=== PATIENT | male | born 1975 | race Two or more races ===

== ENCOUNTER 2021-11-10 16:55 | Emergency (ER) | payer MEDICAID, OTHER ==
[2021-11-10] MEDS: Nitroglycerin 0.4 MG Tab.SL SL PRN ×2 (17:05→17:20)
[2021-11-10] MEDS ORDERED: Morphine 2 MG/ML SYRINGE IVPUSH ONE ×2 (17:14→18:20)
[2021-11-10] MEDS ORDERED: Aspirin 81 MG Tab.Chew PO ONE (17:14)
[2021-11-10] MEDS ORDERED: Nitroglycerin 0.4 MG Tab.SL SL ONE (17:18)
[2021-11-10] MEDS ORDERED: Ondansetron 4 MG/2 ML SDV ONE (17:27)
[2021-11-10 17:39] LABS: ANION GAP 15.8 mmol/L (5-15); CHLORIDE,CL 100 mmol/L (98-107); SODIUM,NA 138 mmol/L (136-145)
[2021-11-10] MEDS ORDERED: Ticagrelor 90 MG Tab PO ONE (18:01)
[2021-11-10] MEDS ORDERED: Tenecteplase 50 MG Kit IV SCH (18:15)
[2021-11-10] MEDS ORDERED: Morphine 2 MG/ML SYRINGE ONE (18:22)
[2021-11-10] MEDS ORDERED: Ondansetron 4 MG/2 ML SDV IVPUSH ONE (18:43)
[2021-11-10] MEDS ORDERED: Heparin Sodium 5,000 Units/ML Vial IVPUSH ONE (19:13)
[2021-11-10] MEDS ORDERED: Heparin Sodium/D5W 250 ML IV SCH (19:15)
[2021-11-10 19:21] LABS: BARBITURATE SCREEN,URINE NEGATIVE (NEGATIVE); BENZODIAZEPINES SCREEN,URINE NEGATIVE (NEGATIVE); TCA SCREEN,URINE NEGATIVE (NEGATIVE); THC SCREEN,URINE 50 NG/ML NEGATIVE (NEGATIVE)
== END 2021-11-10 18:40 ==
LOC: KA.ED 16:55
DX: I21.3 ST elevation (STEMI) myocardial infarction of unspecified site (principal); F10.10 Alcohol abuse, uncomplicated; F14.10 Cocaine abuse, uncomplicated; Z79.899 Other long term (current) drug therapy
CPT/HCPCS: 36415; 51702; 71045; 80053; 80305; 80307; 84484; 85025; 85730; 93005; 96365; 96375; 96376; 99285; A9270; J1644; J2270; J2405; J3101

== ENCOUNTER 2021-11-25 05:50 | Emergency (ER) | payer MEDICAID, OTHER ==
[2021-11-25 06:51] LABS: ANION GAP 12.3 mmol/L (5-15); CHLORIDE,CL 100 mmol/L (98-107); SODIUM,NA 135 mmol/L (136-145)
[2021-11-25] MEDS: Sodium Chloride 0.9% 50 ML IV ONE (08:36)
[2021-11-25] MEDS: Iopamidol 755 Mg/ML 75 ML Bottle IVPUSH ONE (08:37)
== END 2021-11-25 09:30 | disposition home or self-care (01) ==
LOC: KA.ED 05:50
DX: R06.02 Shortness of breath (principal); G47.30 Sleep apnea, unspecified; R79.89 Other specified abnormal findings of blood chemistry; I25.119 Atherosclerotic heart disease of native coronary artery with unspecified angina pectoris; I25.2 Old myocardial infarction; Z95.5 Presence of coronary angioplasty implant and graft; Z79.899 Other long term (current) drug therapy; Z79.02 Long term (current) use of antithrombotics/antiplatelets; Z20.822 Contact with and (suspected) exposure to COVID-19
CPT/HCPCS: 36415; 71046; 71275; 80053; 83880; 84484; 85025; 85379; 93005; 93010; 99284; 99285-25; Q9967; U0002

== ENCOUNTER 2021-11-29 01:25 | Inpatient (IN) | payer MEDICAID, OTHER ==
[2021-11-29 02:19] LABS: ANION GAP 14.2 mmol/L (5-15); CHLORIDE,CL 102 mmol/L (98-107); SODIUM,NA 137 mmol/L (136-145)
[2021-11-29] MEDS ORDERED: Levofloxacin/Dextrose 5%-Water 750 MG in Premix Bag 1 BAG IV ONE (04:01)
[2021-11-29] MEDS ORDERED: Sodium Chloride 0.9% 100 ML ONE (04:11)
[2021-11-29] MEDS ORDERED: Lidocaine 2% 100 MG/5 ML Syringe IVPUSH PRN (05:02)
[2021-11-29] MEDS ORDERED: Nitroglycerin 0.4 MG Tab.SL SL PRN ×2 (05:02→08:09)
[2021-11-29] MEDS ORDERED: EPINEPHrine 1:10,000 1 MG/10 ML Syringe IVPUSH PRN (05:02)
[2021-11-29] MEDS ORDERED: Atropine 0.1 MG/ML 10 ML Syringe IVPUSH PRN (05:02)
[2021-11-29] MEDS ORDERED: Ibuprofen 400 MG Tab PO PRN (05:04)
[2021-11-29] MEDS: Ticagrelor 90 MG Tab PO SCH ×2 (08:57→20:08)
[2021-11-29] MEDS: Pantoprazole 40 MG Tab.CR PO SCH ×2 (08:57→20:08)
[2021-11-29] MEDS: Aspirin 81 MG Tab.EC PO SCH (08:57)
[2021-11-29] MEDS: atorvaSTATin 40 MG Tab PO SCH (08:57)
[2021-11-29] MEDS: Metoprolol Succinate 25 MG Tab.ER PO SCH (08:59)
[2021-11-29] MEDS: Nicotine 21 MG/24 Hr Patch TRDERM SCH (09:00)
[2021-11-29] MEDS ORDERED: Furosemide 40 MG/4 ML VIAL IVPUSH ONE ×2 (09:20→16:16)
[2021-11-29] MEDS: Lisinopril 5 MG Tab PO SCH (09:44)
[2021-11-29 13:19] LABS: BARBITURATE SCREEN,URINE NEGATIVE (NEGATIVE); BENZODIAZEPINES SCREEN,URINE NEGATIVE (NEGATIVE); TCA SCREEN,URINE NEGATIVE (NEGATIVE); THC SCREEN,URINE 50 NG/ML NEGATIVE (NEGATIVE)
[2021-11-30] MEDS: Levofloxacin/Dextrose 5%-Water 750 MG in Premix Bag 1 BAG IV SCH (05:02)
[2021-11-30] MEDS: Nicotine 21 MG/24 Hr Patch TRDERM SCH (09:13)
[2021-11-30] MEDS: Aspirin 81 MG Tab.EC PO SCH (09:13)
[2021-11-30] MEDS: Ticagrelor 90 MG Tab PO SCH ×2 (09:13→21:11)
[2021-11-30] MEDS: atorvaSTATin 40 MG Tab PO SCH (09:13)
[2021-11-30] MEDS: Metoprolol Succinate 25 MG Tab.ER PO SCH (09:14)
[2021-11-30] MEDS: Lisinopril 5 MG Tab PO SCH (09:14)
[2021-11-30] MEDS: Pantoprazole 40 MG Tab.CR PO SCH ×2 (09:14→21:11)
[2021-12-01] MEDS: Acetaminophen 325 MG Tab PO PRN (04:45)
[2021-12-01] MEDS: Levofloxacin/Dextrose 5%-Water 750 MG in Premix Bag 1 BAG IV SCH ×2 (04:46→05:01)
[2021-12-01] MEDS ORDERED: Menthol 7.6 MG Sugar Free Lozenge PO PRN (04:55)
[2021-12-01] MEDS: Nicotine 21 MG/24 Hr Patch TRDERM SCH (09:15)
[2021-12-01] MEDS: Ticagrelor 90 MG Tab PO SCH ×2 (09:15→20:42)
[2021-12-01] MEDS: Metoprolol Succinate 25 MG Tab.ER PO SCH (09:15)
[2021-12-01] MEDS: Pantoprazole 40 MG Tab.CR PO SCH ×2 (09:15→20:42)
[2021-12-01] MEDS: atorvaSTATin 40 MG Tab PO SCH (09:15)
[2021-12-01] MEDS: Lisinopril 5 MG Tab PO SCH (09:16)
[2021-12-01] MEDS: Aspirin 81 MG Tab.EC PO SCH (09:16)
[2021-12-01] MEDS ORDERED: Furosemide 40 MG/4 ML VIAL IVPUSH ONE (11:44)
[2021-12-01] MEDS ORDERED: Furosemide 40 MG/4 ML VIAL IVPUSH SCH (16:00)
[2021-12-01] MEDS: ALPRAZolam 0.25 MG Tab PO PRN (20:42)
[2021-12-01] MEDS ORDERED: Metoprolol Tartrate 5 MG/5 ML SDV IVPUSH ONE (22:29)
[2021-12-01] MEDS ORDERED: Digoxin 500 MCG/2 ML Amp IVPUSH ONE (22:56)
[2021-12-01] MEDS ORDERED: Sodium Chloride 0.9% 250 ML IV SCH (23:00)
[2021-12-01] MEDS ORDERED: Enoxaparin 100 MG/1 ML Syringe SUBCUT ONE (23:09)
[2021-12-01 23:32] LABS: ANION GAP 14.5 mmol/L (5-15); CHLORIDE,CL 100 mmol/L (98-107); SODIUM,NA 138 mmol/L (136-145)
[2021-12-01] MEDS ORDERED: Potassium Chloride 10 MEQ Tab.ER PO ONE (23:37)
[2021-12-02] MEDS ORDERED: Metoprolol Tartrate 5 MG/5 ML SDV IVPUSH ONE (00:39)
[2021-12-02] MEDS ORDERED: Sodium Chloride 0.9% 500 ML IV SCH (00:45)
[2021-12-02] MEDS ORDERED: Metoprolol Tartrate 25 MG Tab PO ONE (03:48)
[2021-12-02] MEDS ORDERED: Digoxin 500 MCG/2 ML Amp IVPUSH ONE (06:00)
[2021-12-02] MEDS: Levofloxacin 500 MG Tab PO SCH (08:04)
[2021-12-02] MEDS: Nicotine 21 MG/24 Hr Patch TRDERM SCH (08:06)
[2021-12-02] MEDS: Ticagrelor 90 MG Tab PO SCH ×2 (08:07→20:52)
[2021-12-02] MEDS: Pantoprazole 40 MG Tab.CR PO SCH ×2 (08:07→20:52)
[2021-12-02] MEDS: Aspirin 81 MG Tab.EC PO SCH (08:08)
[2021-12-02] MEDS: atorvaSTATin 40 MG Tab PO SCH (08:17)
[2021-12-02] MEDS: Lisinopril 5 MG Tab PO SCH (09:46)
[2021-12-02] MEDS: Metoprolol Succinate 25 MG Tab.ER PO SCH (09:55)
[2021-12-02] MEDS: Isosorbide Mononitrate 30 MG Tab.ER PO SCH (11:09)
[2021-12-02] MEDS: Metoprolol Tartrate 25 MG Tab PO SCH (20:52)
[2021-12-02] MEDS: Apixaban 5 MG Tab PO SCH (20:52)
[2021-12-02] MEDS: ALPRAZolam 0.25 MG Tab PO PRN (20:52)
[2021-12-03] MEDS: Acetaminophen 325 MG Tab PO PRN (00:22)
[2021-12-03] MEDS: Levofloxacin 500 MG Tab PO SCH (08:07)
[2021-12-03] MEDS: Ticagrelor 90 MG Tab PO SCH (08:07)
[2021-12-03] MEDS: Nicotine 21 MG/24 Hr Patch TRDERM SCH (08:07)
[2021-12-03] MEDS: Pantoprazole 40 MG Tab.CR PO SCH (08:07)
[2021-12-03] MEDS: atorvaSTATin 40 MG Tab PO SCH (08:08)
[2021-12-03] MEDS: Aspirin 81 MG Tab.EC PO SCH (08:08)
[2021-12-03] MEDS: Metoprolol Tartrate 25 MG Tab PO SCH (08:08)
[2021-12-03] MEDS: Isosorbide Mononitrate 30 MG Tab.ER PO SCH (08:08)
[2021-12-03] MEDS: Apixaban 5 MG Tab PO SCH (08:09)
[2021-12-03] MEDS ORDERED: Furosemide 40 MG/4 ML VIAL IVPUSH ONE (08:53)
[2021-12-03] MEDS ORDERED: Digoxin 125 MCG Tab PO SCH (09:00)
[2021-12-03] MEDS ORDERED: Lactated Ringers 1,000 ML IV ONE (11:35)
[2021-12-03] MEDS ORDERED: Sodium Chloride 0.9% 1,000 ML IV ONE (11:37)
[2021-12-03 12:11] LABS: ANION GAP 12.7 mmol/L (5-15); CHLORIDE,CL 100 mmol/L (98-107); SODIUM,NA 138 mmol/L (136-145)
[2021-12-03] MEDS ORDERED: Sodium Chloride 0.9% 1,000 ML IV SCH (12:30)
== END 2021-12-03 13:05 | DRG 193 ==
LOC: KA.ED 01:25 → KA.MS 03:36 → UNDOADMIN 04:10 → KA.MS 04:10
PROVIDERS: ADMIT Internal Medicine; ATTEND Nurse Practitioner Family
DX: J18.9 Pneumonia, unspecified organism (principal); I21.3 ST elevation (STEMI) myocardial infarction of unspecified site; I50.22 Chronic systolic (congestive) heart failure; I48.0 Paroxysmal atrial fibrillation; F11.90 Opioid use, unspecified, uncomplicated; I25.10 Atherosclerotic heart disease of native coronary artery without angina pectoris; Y95 Nosocomial condition; Z79.82 Long term (current) use of aspirin; I25.2 Old myocardial infarction
CPT/HCPCS: 36415; 71045; 80048; 80053; 80202; 80305-QW; 82550; 83880; 84484; 85025; 85379; 87070; 87205; 93005; 99223; 99232; 99285-25; A9270-GY; J1160; J1650; J1940; J1956; J3370; J3490; J7030; J7040; J7050; J7120; U0002

== ENCOUNTER 2021-12-10 19:46 | Emergency (ER) | payer MEDICAID, OTHER ==
[2021-12-10 20:14] LABS: ANION GAP 13.5 mmol/L (5-15); CHLORIDE,CL 98 mmol/L (98-115); SODIUM,NA 136 mmol/L (136-145)
[2021-12-10] MEDS ORDERED: Sodium Chloride 0.9% 10 ML Syringe FLUSH PRN (20:18)
== END 2021-12-10 21:04 | disposition home or self-care (01) ==
LOC: KA.ED 19:46
DX: R42 Dizziness and giddiness (principal); R05.9 Cough, unspecified; M79.89 Other specified soft tissue disorders; M25.512 Pain in left shoulder; I25.119 Atherosclerotic heart disease of native coronary artery with unspecified angina pectoris; I25.2 Old myocardial infarction; Z79.01 Long term (current) use of anticoagulants; Z79.899 Other long term (current) drug therapy
CPT/HCPCS: 36415; 71046; 80053; 80162; 83880; 84484; 85025; 93005; 93010; 99284; 99285-25

== ENCOUNTER 2021-12-29 23:15 | Inpatient (IN) | payer MEDICAID, OTHER ==
[2021-12-30 00:33] LABS: CHLORIDE,CL 102 mmol/L (98-107); SODIUM,NA 137 mmol/L (136-145)
[2021-12-30] MEDS ORDERED: Furosemide 40 MG/4 ML VIAL IVPUSH ONE ×2 (00:33→14:00)
[2021-12-30 00:51] LABS: ANION GAP 14.5 mmol/L (5-15)
[2021-12-30] MEDS ORDERED: cefTRIAXone 2 GM Vial IVPUSH ONE (01:37)
[2021-12-30] MEDS ORDERED: Water For Injection, Sterile 20 ML ONE (01:55)
[2021-12-30] MEDS: Nicotine 21 MG/24 Hr Patch TRDERM SCH (09:14)
[2021-12-30] MEDS: Apixaban 5 MG Tab PO SCH ×2 (09:15→20:47)
[2021-12-30] MEDS ORDERED: Potassium Bicarbonate 25 MEQ Tab.EFF PO ONE ×2 (09:15→17:00)
[2021-12-30] MEDS: Carvedilol 6.25 MG Tab PO SCH ×2 (09:15→17:24)
[2021-12-30] MEDS: Pantoprazole 40 MG Tab.CR PO SCH (09:15)
[2021-12-30] MEDS: Escitalopram 10 MG Tab PO SCH (09:16)
[2021-12-30] MEDS: Amiodarone 200 MG Tab PO SCH ×2 (09:16→20:49)
[2021-12-30] MEDS: Lisinopril 5 MG Tab PO SCH (09:19)
[2021-12-30] MEDS: Spironolactone 25 MG Tab PO SCH (09:20)
[2021-12-30] MEDS: Acetaminophen 325 MG Tab PO PRN ×3 (09:27→22:01)
[2021-12-30] MEDS ORDERED: Ondansetron 4 MG/2 ML SDV IVPUSH ONE (13:17)
[2021-12-30] MEDS: guaiFENesin/Dextromethorphan 100-10 MG/5 ML Soln 5 ML Cup PO PRN ×2 (15:49→20:46)
[2021-12-30] MEDS ORDERED: Metolazone 2.5 MG Tab PO ONE (17:19)
[2021-12-30] MEDS: ClonazePAM 0.5 MG Tab PO SCH (20:47)
[2021-12-30] MEDS: atorvaSTATin 40 MG Tab PO SCH (20:48)
[2021-12-30] MEDS: cefTRIAXone 2 GM Vial IVPUSH SCH (21:00)
[2021-12-31] MEDS: guaiFENesin/Dextromethorphan 100-10 MG/5 ML Soln 5 ML Cup PO PRN ×2 (02:08→21:48)
[2021-12-31] MEDS: Acetaminophen 325 MG Tab PO PRN ×3 (06:29→23:34)
[2021-12-31] MEDS: Pantoprazole 40 MG Tab.CR PO SCH (06:30)
[2021-12-31 07:53] LABS: ANION GAP 13.1 mmol/L (5-15); CHLORIDE,CL 98 mmol/L (98-107); SODIUM,NA 138 mmol/L (136-145)
[2021-12-31] MEDS: Amiodarone 200 MG Tab PO SCH ×2 (08:06→20:51)
[2021-12-31] MEDS: Escitalopram 10 MG Tab PO SCH (08:06)
[2021-12-31] MEDS: Lisinopril 5 MG Tab PO SCH (08:06)
[2021-12-31] MEDS: Spironolactone 25 MG Tab PO SCH (08:06)
[2021-12-31] MEDS: Carvedilol 6.25 MG Tab PO SCH ×2 (08:07→17:58)
[2021-12-31] MEDS: Apixaban 5 MG Tab PO SCH ×2 (08:07→20:51)
[2021-12-31] MEDS: Remove Patch - NICOTINE TRDERM SCH (08:08)
[2021-12-31] MEDS: Nicotine 21 MG/24 Hr Patch TRDERM SCH (08:09)
[2021-12-31] MEDS: Furosemide 40 MG Tab PO SCH (09:59)
[2021-12-31] MEDS: atorvaSTATin 40 MG Tab PO SCH (20:50)
[2021-12-31] MEDS: ClonazePAM 0.5 MG Tab PO SCH (20:51)
[2021-12-31] MEDS: cefTRIAXone 2 GM Vial IVPUSH SCH (21:08)
[2022-01-01] MEDS: Pantoprazole 40 MG Tab.CR PO SCH ×2 (06:18→06:29)
[2022-01-01] MEDS: guaiFENesin/Dextromethorphan 100-10 MG/5 ML Soln 5 ML Cup PO PRN ×2 (06:31→21:03)
[2022-01-01 07:37] LABS: ANION GAP 14.2 mmol/L (5-15); CHLORIDE,CL 97 mmol/L (98-107); SODIUM,NA 137 mmol/L (136-145)
[2022-01-01] MEDS: Lisinopril 5 MG Tab PO SCH (08:23)
[2022-01-01] MEDS: Nicotine 21 MG/24 Hr Patch TRDERM SCH (08:23)
[2022-01-01] MEDS: Remove Patch - NICOTINE TRDERM SCH (08:23)
[2022-01-01] MEDS: Escitalopram 10 MG Tab PO SCH (08:24)
[2022-01-01] MEDS: Apixaban 5 MG Tab PO SCH ×2 (08:24→21:03)
[2022-01-01] MEDS: Spironolactone 25 MG Tab PO SCH (08:24)
[2022-01-01] MEDS: Furosemide 40 MG Tab PO SCH (08:24)
[2022-01-01] MEDS: Carvedilol 6.25 MG Tab PO SCH ×2 (08:24→17:52)
[2022-01-01] MEDS: Amiodarone 200 MG Tab PO SCH ×2 (08:24→21:03)
[2022-01-01] MEDS ORDERED: Metolazone 2.5 MG Tab PO ONE (15:20)
[2022-01-01] MEDS ORDERED: Potassium Bicarbonate 25 MEQ Tab.EFF PO ONE (18:00)
[2022-01-01] MEDS: Acetaminophen 325 MG Tab PO PRN (18:28)
[2022-01-01] MEDS: atorvaSTATin 40 MG Tab PO SCH (21:03)
[2022-01-01] MEDS: cefTRIAXone 2 GM Vial IVPUSH SCH (21:03)
[2022-01-01] MEDS: ClonazePAM 0.5 MG Tab PO SCH (21:03)
[2022-01-02] MEDS: guaiFENesin/Dextromethorphan 100-10 MG/5 ML Soln 5 ML Cup PO PRN ×2 (02:25→08:37)
[2022-01-02] MEDS: Pantoprazole 40 MG Tab.CR PO SCH ×2 (06:04→06:32)
[2022-01-02 07:48] LABS: ANION GAP 12.3 mmol/L (5-15); CHLORIDE,CL 95 mmol/L (98-107); SODIUM,NA 136 mmol/L (136-145)
[2022-01-02] MEDS: Lisinopril 5 MG Tab PO SCH (08:27)
[2022-01-02] MEDS: Escitalopram 10 MG Tab PO SCH (08:31)
[2022-01-02] MEDS: Spironolactone 25 MG Tab PO SCH (08:31)
[2022-01-02] MEDS: Amiodarone 200 MG Tab PO SCH (08:31)
[2022-01-02] MEDS: Furosemide 40 MG Tab PO SCH (08:31)
[2022-01-02] MEDS: Apixaban 5 MG Tab PO SCH (08:31)
[2022-01-02] MEDS: Carvedilol 6.25 MG Tab PO SCH (08:31)
[2022-01-02] MEDS: Remove Patch - NICOTINE TRDERM SCH (08:32)
[2022-01-02] MEDS: Nicotine 21 MG/24 Hr Patch TRDERM SCH (08:32)
[2022-01-02] MEDS: Acetaminophen 325 MG Tab PO PRN (08:37)
[2022-01-02] MEDS ORDERED: Potassium Bicarbonate 25 MEQ Tab.EFF PO ONE (18:00)
== END 2022-01-02 13:20 | disposition home or self-care (01) | DRG 193 ==
LOC: KA.ED 23:15 → KA.MS 12-30 01:41 → UNDOADMIN 12-30 02:15 → KA.MS 12-30 02:15
PROVIDERS: ADMIT Nurse Practitioner Family; ATTEND Internal Medicine
DX: J18.9 Pneumonia, unspecified organism (principal); I50.33 Acute on chronic diastolic (congestive) heart failure; I48.91 Unspecified atrial fibrillation; I25.2 Old myocardial infarction; F32.A Depression, unspecified; K21.9 Gastro-esophageal reflux disease without esophagitis; Z20.822 Contact with and (suspected) exposure to COVID-19; I25.10 Atherosclerotic heart disease of native coronary artery without angina pectoris; E87.6 Hypokalemia; Z95.5 Presence of coronary angioplasty implant and graft; Z79.899 Other long term (current) drug therapy
CPT/HCPCS: 36415; 71045; 80053; 83605; 83880; 84484; 85025; 87070; 87205; 93005; 96374; 96375; 99285-25; A9270-GY; J0696; J1940; U0002

== ENCOUNTER 2022-01-27 16:08 | Inpatient (IN) | payer MEDICAID, OTHER ==
[2022-01-27 17:12] LABS: RESPIRATORY SYNCYTIAL VIR NAA NEGATIVE (NEGATIVE)
[2022-01-27 17:13] LABS: CORONAVIRUS COVID-19 NAA NEGATIVE (NEGATIVE)
[2022-01-27 17:53] LABS: ANION GAP 11.9 mmol/L (5-15); CHLORIDE,CL 100 mmol/L (98-107); SODIUM,NA 137 mmol/L (136-145)
[2022-01-27 17:54] LABS: ESTIMATED GFR 60 mL/min
[2022-01-27] MEDS ORDERED: cefTRIAXone 2 GM Vial IVPUSH ONE (19:43)
[2022-01-27] MEDS ORDERED: Zolpidem 5 MG Tab PO PRN (19:54)
[2022-01-27] MEDS: guaiFENesin/Dextromethorphan 100-10 MG/5 ML Soln 5 ML Cup PO PRN (20:30)
[2022-01-27] MEDS ORDERED: Nitroglycerin 0.4 MG Tab.SL SL PRN (21:13)
[2022-01-27] MEDS: Amiodarone 200 MG Tab PO SCH (21:45)
[2022-01-28] MEDS ORDERED: Albuterol 0.083% 2.5 MG/3 ML Neb Soln NEB PRN (00:10)
[2022-01-28] MEDS ORDERED: Furosemide 40 MG/4 ML VIAL IVPUSH ONE ×3 (00:13→14:22)
[2022-01-28] MEDS: guaiFENesin/Dextromethorphan 100-10 MG/5 ML Soln 5 ML Cup PO PRN ×2 (00:39→14:36)
[2022-01-28] MEDS: Acetaminophen 500 MG Tab PO PRN ×3 (01:41→17:46)
[2022-01-28] MEDS: Pantoprazole 40 MG Tab.CR PO SCH ×2 (06:26→06:33)
[2022-01-28 07:49] LABS: ANION GAP 14.2 mmol/L (5-15); CHLORIDE,CL 100 mmol/L (98-107); ESTIMATED GFR > 60 mL/min; SODIUM,NA 138 mmol/L (136-145)
[2022-01-28] MEDS: Benzonatate 100 MG Cap PO SCH ×3 (08:06→20:32)
[2022-01-28] MEDS: Clopidogrel 75 MG Tab PO SCH (08:07)
[2022-01-28] MEDS: Amiodarone 200 MG Tab PO SCH ×2 (08:07→20:33)
[2022-01-28] MEDS: Escitalopram 10 MG Tab PO SCH (08:07)
[2022-01-28] MEDS: Carvedilol 6.25 MG Tab PO SCH ×2 (08:07→17:46)
[2022-01-28] MEDS ORDERED: Potassium Chloride 10 MEQ Tab.ER PO SCH (09:00)
[2022-01-28] MEDS ORDERED: Lisinopril 5 MG Tab PO SCH (09:15)
[2022-01-28] MEDS: FARXIGA 10 MG PO SCH (10:04)
[2022-01-28] MEDS: Spironolactone 25 MG Tab PO SCH (10:06)
[2022-01-28] MEDS ORDERED: Potassium Chloride 10 MEQ Tab.ER PO ONE (18:00)
[2022-01-28] MEDS: Potassium Bicarbonate 25 MEQ Tab.EFF PO SCH (18:02)
[2022-01-28] MEDS ORDERED: cefTRIAXone 1 GM Vial IVPUSH SCH (20:00)
[2022-01-28] MEDS: Rivaroxaban 10 MG Tab PO SCH (20:32)
[2022-01-28] MEDS: ClonazePAM 0.5 MG Tab PO SCH (20:32)
[2022-01-28] MEDS: atorvaSTATin 40 MG Tab PO SCH (20:33)
[2022-01-28] MEDS ORDERED: Codeine/guaiFENesin 10-100 MG/5 ML Syrup 5 ML Cup PO SCH (21:00)
[2022-01-29] MEDS: guaiFENesin/Dextromethorphan 100-10 MG/5 ML Soln 5 ML Cup PO PRN ×2 (00:38→05:36)
[2022-01-29] MEDS: Acetaminophen 500 MG Tab PO PRN (01:50)
[2022-01-29] MEDS: Pantoprazole 40 MG Tab.CR PO SCH (06:37)
[2022-01-29] MEDS: Potassium Bicarbonate 25 MEQ Tab.EFF PO SCH (08:03)
[2022-01-29] MEDS: Spironolactone 25 MG Tab PO SCH (08:04)
[2022-01-29] MEDS: Clopidogrel 75 MG Tab PO SCH (08:04)
[2022-01-29] MEDS: Amiodarone 200 MG Tab PO SCH ×2 (08:04→20:22)
[2022-01-29] MEDS: Benzonatate 100 MG Cap PO SCH ×3 (08:04→20:22)
[2022-01-29] MEDS: Carvedilol 6.25 MG Tab PO SCH ×2 (08:04→18:09)
[2022-01-29] MEDS: Escitalopram 10 MG Tab PO SCH (08:04)
[2022-01-29] MEDS: FARXIGA 10 MG PO SCH (08:05)
[2022-01-29 08:32] LABS: ANION GAP 13.4 mmol/L (5-15)
[2022-01-29] MEDS: Acetaminophen 325 MG Tab PO PRN ×4 (09:08→22:13)
[2022-01-29] MEDS: Furosemide 40 MG Tab PO SCH ×2 (09:08→20:22)
[2022-01-29] MEDS: Levalbuterol HCl 1.25 MG/3 ML Neb NEB SCH ×2 (13:07→20:23)
[2022-01-29] MEDS ORDERED: Piperacillin/Tazobactam 3.375 GM in Sodium Chloride 0.9% 50 ML IV SCH (13:15)
[2022-01-29] MEDS: Piperacillin/Tazobactam/Dext 50 ML IV SCH ×2 (13:57→20:22)
[2022-01-29] MEDS: Codeine/guaiFENesin 10-100 MG/5 ML Syrup 5 ML Cup PO PRN ×3 (13:57→22:12)
[2022-01-29] MEDS: atorvaSTATin 40 MG Tab PO SCH (20:22)
[2022-01-29] MEDS: ClonazePAM 0.5 MG Tab PO SCH (20:22)
[2022-01-29] MEDS: Rivaroxaban 10 MG Tab PO SCH (20:22)
[2022-01-29] MEDS: Melatonin 3 MG Tab PO PRN (20:22)
[2022-01-30] MEDS: Piperacillin/Tazobactam/Dext 50 ML IV SCH ×4 (01:56→20:47)
[2022-01-30] MEDS: Codeine/guaiFENesin 10-100 MG/5 ML Syrup 5 ML Cup PO PRN ×4 (02:07→21:33)
[2022-01-30] MEDS: Levalbuterol HCl 1.25 MG/3 ML Neb NEB SCH ×3 (05:18→20:50)
[2022-01-30] MEDS ORDERED: Sodium Chloride 0.9% 100 ML IV SCH (05:30)
[2022-01-30] MEDS: Pantoprazole 40 MG Tab.CR PO SCH (07:29)
[2022-01-30 08:20] LABS: ANION GAP 9.7 mmol/L (5-15)
[2022-01-30] MEDS: Benzonatate 100 MG Cap PO SCH ×3 (08:53→20:48)
[2022-01-30] MEDS: Potassium Bicarbonate 25 MEQ Tab.EFF PO SCH (08:54)
[2022-01-30] MEDS: Carvedilol 6.25 MG Tab PO SCH ×2 (08:54→17:31)
[2022-01-30] MEDS: Acetaminophen 325 MG Tab PO PRN ×2 (08:54→17:31)
[2022-01-30] MEDS: Clopidogrel 75 MG Tab PO SCH (08:54)
[2022-01-30] MEDS: Escitalopram 10 MG Tab PO SCH (08:54)
[2022-01-30] MEDS: Spironolactone 25 MG Tab PO SCH (08:54)
[2022-01-30] MEDS: Amiodarone 200 MG Tab PO SCH ×2 (08:54→20:48)
[2022-01-30] MEDS: Furosemide 40 MG Tab PO SCH (08:54)
[2022-01-30] MEDS: FARXIGA 10 MG PO SCH (09:30)
[2022-01-30] MEDS: Rivaroxaban 10 MG Tab PO SCH (20:48)
[2022-01-30] MEDS: atorvaSTATin 40 MG Tab PO SCH (20:48)
[2022-01-30] MEDS: ClonazePAM 0.5 MG Tab PO SCH (20:48)
[2022-01-30] MEDS: Bisacodyl 5 MG Tab PO PRN (20:49)
[2022-01-30 23:07] LABS: BORDETELLA PARAPERT IS1001 Not Detected (Not Detected)
[2022-01-31] MEDS: Acetaminophen 325 MG Tab PO PRN (00:51)
[2022-01-31] MEDS: Piperacillin/Tazobactam/Dext 50 ML IV SCH ×2 (00:51→08:03)
[2022-01-31] MEDS: Melatonin 3 MG Tab PO PRN (00:52)
[2022-01-31] MEDS: Pantoprazole 40 MG Tab.CR PO SCH ×2 (06:05→06:36)
[2022-01-31] MEDS: Levalbuterol HCl 1.25 MG/3 ML Neb NEB SCH (06:05)
[2022-01-31 07:46] LABS: CHLORIDE,CL 99 mmol/L (98-107); SODIUM,NA 136 mmol/L (136-145)
[2022-01-31 07:48] LABS: ESTIMATED GFR > 60 mL/min
[2022-01-31] MEDS: Bisacodyl 5 MG Tab PO PRN (08:01)
[2022-01-31] MEDS: Clopidogrel 75 MG Tab PO SCH (08:01)
[2022-01-31] MEDS: Benzonatate 100 MG Cap PO SCH (08:01)
[2022-01-31] MEDS: Escitalopram 10 MG Tab PO SCH (08:02)
[2022-01-31] MEDS: Potassium Bicarbonate 25 MEQ Tab.EFF PO SCH (08:02)
[2022-01-31] MEDS: Amiodarone 200 MG Tab PO SCH (08:02)
[2022-01-31] MEDS: Spironolactone 25 MG Tab PO SCH (08:02)
[2022-01-31] MEDS: Carvedilol 6.25 MG Tab PO SCH (08:02)
[2022-01-31] MEDS: Furosemide 40 MG Tab PO SCH (08:10)
== END 2022-01-31 10:15 | DRG 193 ==
LOC: KA.OC 16:08 → KA.MS 17:34
PROVIDERS: ADMIT Nurse Practitioner Family; ATTEND Nurse Practitioner Family
DX: J18.9 Pneumonia, unspecified organism (principal); I50.23 Acute on chronic systolic (congestive) heart failure; R53.83 Other fatigue; R05.9 Cough, unspecified; I48.91 Unspecified atrial fibrillation; K21.9 Gastro-esophageal reflux disease without esophagitis; F32.A Depression, unspecified; Z20.822 Contact with and (suspected) exposure to COVID-19; I25.10 Atherosclerotic heart disease of native coronary artery without angina pectoris; Z95.5 Presence of coronary angioplasty implant and graft; Z79.899 Other long term (current) drug therapy; I25.2 Old myocardial infarction; Z79.01 Long term (current) use of anticoagulants
CPT/HCPCS: 0241U; 36415; 71046; 80048; 80202; 83605; 83880; 84145; 85025; 86738; 87040; 87070; 87205; 87486; 87581; 87633; 87798; 94640; A9270-GY; J0696; J1940; J2543; J3370; J7050; J7612-GY; J7613-GY